=== PATIENT | male | born 1985 | race Hispanic/Latino ===

== ENCOUNTER 2018-06-08 06:34 | Day surgery (SDC) | payer OTHER ==
[2016-08-06 11:45] VITALS: BMI 28.1
[2018-06-08] MEDS ORDERED: Propofol 10 mg/ml Inj (20 ML) ONE (08:03)
[2018-06-08] MEDS ORDERED: Lactated Ringer's 500 ML IV ONE ×2 (08:09)
[2018-06-08 08:20] VITALS: TEMP 97.5
--- NOTE | 2018-06-08 08:27 | CP.SDSHP ---
Same Day Surgery H & P - History Proposed Procedure: EGD Pre-Op Diagnosis: iron deficiency anemia, gluten sensitivity - Previous Medical/Surgical History Misc: Anemia - Allergies Allergies: Allergies No Known Allergies Allergy (Verified 06/08/18 06:58) - Physical Exam Vital Signs: Vital Signs 06/08/18 06/08/18 06:45 08:17 Temperature 97.3 F L 97.5 F L Pulse Rate 74 69 Respiratory 19 16 Rate Blood Pressure 134/83 134/78 O2 Sat by Pulse 98 99 Oximetry Mental Status: Alert & Oriented x3 Neuro: WNL Heart: WNL Lungs: WNL GI: WNL - Impression Impression: Iron deficiency anemia, gluten sensitivity Pt. Evaluated Today:Candidate for Anesthesia & Procedure: Yes - Date & Time Date: 06/08/18 Time: 08:27 Short Stay Discharge - Short Stay Discharge Admitting Diagnosis/Reason for Visit: ANEMIA Disposition: HOME/ ROUTINE
[2018-06-08 10:38] VITALS: BP 112/73; PULSE 71; RESP 15; O2SAT 100
== END 2018-06-08 10:00 | disposition home or self-care (01) ==
LOC: C.ENDO 06:34
PROVIDERS: ATTEND Internal Medicine Gastroenterology
DX: K21.9 Gastro-esophageal reflux disease without esophagitis (principal); K29.50 Unspecified chronic gastritis without bleeding; D50.9 Iron deficiency anemia, unspecified; K90.41 Non-celiac gluten sensitivity
CPT/HCPCS: 43239; 88305; 88313; 88342; J2704; J7120